=== PATIENT | male | born 1955 | race Caucasian/White ===

== ENCOUNTER 2020-10-20 00:38 | Emergency (ER) | payer MEDICARE, OTHER ==
[~2020-10-20] VITALS: Ht 188 cm; Wt 115.8 kg
--- NOTE | 2020-10-20 00:48 | NUR ---
KIMBERLEE [phone]
[2020-10-20] MEDS ORDERED: ONDANSETRON ODT 4 MG PO ONE (01:30)
[2020-10-20] MEDS ORDERED: ONDANSETRON ODT 4 MG ONE (02:00)
[2020-10-20] MEDS ORDERED: MORPHINE SULFATE 4 MG/ML, 1ML IVPush PRN (02:00)
[2020-10-20] MEDS ORDERED: ONDANSETRON 2MG/ML, 2ML IVPush ONE (02:00)
[2020-10-20 02:02] LABS: BASOPHILS % (AUTO) 0 % (0-1); EOSINOPHILS % (AUTO) 1 % (1-7); LYMPHOCYTES % (AUTO) 8 % (22-44); MEAN CORPUSCULAR HEMOGLOBIN 31.4 pg (27.5-34.5); MEAN PLATELET VOLUME 7.9 fL (7.4-10.4); MONOCYTES % (AUTO) 8 % (2-9); NEUTROPHILS % (AUTO) 84 % (42-75); PLATELET COUNT 277 x10^3/uL (130-400); RED BLOOD COUNT 4.47 x10^6/uL (4.38-5.82); RED CELL DISTRIBUTION WIDTH 13.2 % (9.4-14.8)
[2020-10-20 02:03] LABS: MD NO
[2020-10-20 02:08] LABS: ALANINE AMINOTRANSFERASE 23 U/L (12-78); ALBUMIN 3.8 g/dL (3.4-5.0); ANION GAP 4 mmol/L (5-15); CALCIUM 9.3 mg/dL (8.5-10.1); CHLORIDE 113 mmol/L (98-107); CREATININE 1.23 mg/dL (0.7-1.3)
[2020-10-20 02:13] LABS: ALKALINE PHOSPHATASE 86 U/L (45-117); BILIRUBIN,TOTAL 0.4 mg/dL (0.2-1.0); TOTAL PROTEIN 6.8 g/dL (6.4-8.2); TROPONIN I < 0.015 ng/mL (0.000-0.045)
[2020-10-20] MEDS ORDERED: HYDROmorphone 1 MG/ML, 1ML INJ ONE (02:13)
[2020-10-20 02:17] VITALS: BP 136/69
--- NOTE | 2020-10-20 02:19 | NUR ---
IM dilaudid given. Pt anxious, wants to go home. This RN explaining to pt it would be good to stay until XR and lab results are back and to see if the dilaudid helps his pain. Pt agrees to stay.
[2020-10-20] MEDS ORDERED: HYDROmorphone 1 MG/ML, 1ML INJ IM ONE (02:30)
--- NOTE | 2020-10-20 02:57 | NUR ---
Report to [place].
--- NOTE | 2020-10-20 03:13 | NUR ---
assumed care pf pt went to see pt and pt stated that it was time for him to leave, pts adult son at bs and stated that he was driving and was taking pt home at this time
--- NOTE | 2020-10-20 03:16 | NUR ---
[employer]: PT. A&O X 4 AND AMBULATORY WITH STEADY GAIT. PT. WITH FAMILY MEMBER TO DRIVE HIM HOME. THIS RN SPOKE WITH PT. AND FAMILY PRIOR TO LEAVING; THEY VERBALIZED THEY WOULD COME BACK SHOULD ANY NEW CONCERNS ARISE. VIVEK PAPER SIGNED.
== END 2020-10-20 03:17 | disposition left against medical advice (07) ==
LOC: ED 02:58
DX: R07.89 Other chest pain (principal); R11.2 Nausea with vomiting, unspecified; R10.11 Right upper quadrant pain; R10.13 Epigastric pain; I10 Essential (primary) hypertension; R94.31 Abnormal electrocardiogram [ECG] [EKG]; Z90.89 Acquired absence of other organs
CPT/HCPCS: 36415; 71045; 80053; 83690; 84484; 85025; 93005; 96372; 99285; J1170